=== PATIENT | female | born 1970 | race Caucasian/White ===

== ENCOUNTER 2017-12-31 11:30 | Day surgery (SDC) | payer BC ==
[2017-12-31] MEDS ORDERED: Propofol 200 MG/20 ML SDV ONE (11:38)
--- NOTE | 2017-12-31 11:52 | PCM.PN ---
- General Info Date of Service: 12/31/17 - Review of Systems Systems Review Comment:: 47-year-old female referred for her initial colonoscopy. She has a recent history of intermittent rectal bleeding. She is also had some crampy lower abdominal pain. She is medically stable to proceed today with no recent significant changes in her health status. I have discussed the proposed colonoscopy with the patient. Risks such as but not limited to bleeding and GI injury or reviewed. She appears to understand and agrees to proceed. - Patient Data Vitals - Most Recent: Last Vital Signs Temp 99.5 F 12/31/17 11:44 Pulse 67 12/31/17 11:44 Resp 18 12/31/17 11:44 BP 103/62 12/31/17 11:44 Pulse Ox 98 12/31/17 11:44 Med Orders - Current: Current Medications Lactated Ringer's (Ringers, Lactated) 1,000 mls @ 50 mls/hr IV ASDIRECTED NIKITA Sodium Chloride (Syrex Flush) 5 ml FLUSH Q8HR PRN PRN Reason: Keep Vein Open Discontinued Medications Propofol (Diprivan 20 Ml) Confirm Administered Dose 400 mg .ROUTE .STK-MED ONE Stop: 12/31/17 11:39 - Problem List Review Problem List Initiated/Reviewed/Updated: Yes - My Orders Last 24 Hours: My Active Orders 12/30/17 15:59 Resuscitation Status Routine 12/31/17 12:30 Patient to Empty Bladder [RC] ASDIRECTED Peripheral IV Care [RC] . DIRECTED Verify Patient Consent Obtain [RC] ASDIRECTED HCG QUALITATIVE,URINE [URCHEM] Routine Lactated Ringers [Ringers, Lactated] 1,000 ml IV ASDIRECTED Sodium Chloride 0.9% [Syrex Flush] 5 ml FLUSH Q8HR PRN Peripheral IV Insertion Adult [OM.PC] Routine 12/31/17 Breakfast Nothing Per Oral Diet [DIET] - Assessment Assessment:: Rectal bleeding - Plan Plan:: Colonoscopy
[2017-12-31] MEDS ORDERED: Propofol 200 MG/20 ML SDV IV ONE (11:58)
[2017-12-31] MEDS ORDERED: Sodium Chloride 0.9% 5 ML Syringe FLUSH PRN (12:30)
[2017-12-31] MEDS ORDERED: Lactated Ringers 1,000 ML IV SCH (12:30)
--- NOTE | 2017-12-31 12:32 | PCM.OPNOTE ---
- General Post-Op/Procedure Note Date of Surgery/Procedure: 12/31/17 Operative Procedure(s): Colonoscopy Findings: Mildly inflamed small internal hemorrhoids Pre Op Diagnosis: Rectal Bleeding Post-Op Diagnosis: Hemorrhoids Anesthesia Technique: MAC Primary Surgeon: Jaswant Sullivan Pathology: none Output, Urine Amount: 0 EBL in mLs: 0 Complications: None Condition: Good
[2017-12-31 13:08] VITALS: BP 87/61
--- NOTE | 2017-12-31 22:30 | PROC ---
PROVIDER: Jaswant Sullivan MD REFERRING PHYSICIAN: Jaqueline Samaniego MD PRE-PROCEDURE DIAGNOSIS: Rectal bleeding. POST-PROCEDURE DIAGNOSIS: Hemorrhoids. PROCEDURE PERFORMED: Colonoscopy. INDICATIONS FOR SURGERY: This 47-year-old female has been having some recent episodes of rectal bleeding. She has also noted a slight weight loss over the last few months. She has never had previous colonoscopy. FINDINGS: The patient's colon appears normal. She does have some small internal hemorrhoids with mild degree of irritation in the tissue in this area, but no other abnormalities are noted in the colon or the terminal ilium. The mucosa in those regions appears healthy and normal without visible signs of bleeding or other lesions. PROCEDURE: The patient was taken to the operating room. She was given intravenous sedation, and with her in the left lateral decubitus position, digital rectal exam was performed showing no rectal masses. The Olympus colonoscope was inserted into the rectum. Retroflexed examination of the rectal canal was performed. The scope was then carefully advanced under direct visualization through the entire length of the colon until cecum was reached. Cecal acquisition was confirmed by noting the normal internal cecal anatomy including the appendiceal orifice and ileocecal valve. The light was also noted to transilluminate the abdominal wall in the right lower quadrant. The ileocecal valve was cannulated and the terminal ilium was examined and also appeared normal. The scope was then slowly withdrawn sequentially re-examining the colonic segments. Once the entire colon and rectum had been fully examined, the scope was removed and the patient was taken from the operating room in satisfactory condition. ESTIMATED BLOOD LOSS: Zero. COMPLICATIONS: None. PROGNOSIS: Good. /[id number]/MODL
--- NOTE | 2018-01-01 10:41 | PN ---
DATE OF SURGERY: 12/31/2017 SURGEON: Jaswant Sullivan MD A 47-year-old female, referred for her initial colonoscopy. She has a recent history of intermittent rectal bleeding. She has also had some crampy lower abdominal pain. She is medically stable to proceed today with no recent significant changes in her health status. I have discussed the proposed colonoscopy with the patient. Risks such as, but not limited to, bleeding and GI injury are reviewed. She appears to understand and agrees to proceed. Rectal bleeding, colonoscopy. /[id number]/MODL
== END 2017-12-31 14:27 | disposition home or self-care (01) ==
LOC: KA.SDS 11:30
PROVIDERS: ATTEND Surgery
DX: K64.8 Other hemorrhoids (principal); Z88.1 Allergy status to other antibiotic agents; Z88.8 Allergy status to other drugs, medicaments and biological substances; Z91.018 Allergy to other foods; Z91.011 Allergy to milk products
CPT/HCPCS: 45378; J2704

== ENCOUNTER 2023-10-01 09:32 | Day surgery (SDC) | payer BC ==
[~2023-10-01 09:32] MED LIST: Lactated Ringers 1,000 ML IV SCH; Sodium Chloride 0.9% 10 ML Syringe FLUSH PRN
[2023-10-01] MEDS ORDERED: Midazolam 1 MG/ML 2 ML SDV ONE (10:27)
[2023-10-01] MEDS ORDERED: Propofol 200 MG/20 ML SDV ONE (10:27)
[2023-10-01 13:38] VITALS: BP 114/52; PULSE 57
== END 2023-10-01 13:00 | disposition home or self-care (01) ==
LOC: KA.SDS 09:32
PROVIDERS: ATTEND Surgery
DX: K62.89 Other specified diseases of anus and rectum (principal); K92.1 Melena; Z79.899 Other long term (current) drug therapy; Z91.040 Latex allergy status; Z88.8 Allergy status to other drugs, medicaments and biological substances; Z91.011 Allergy to milk products
CPT/HCPCS: 00812; 84703; J2250; J2704; J7120